=== PATIENT | female | born 1965 | race Caucasian/White ===

== ENCOUNTER 2016-08-25 08:46 | Emergency (ER) | payer OTHER ==
[~2016-08-25] VITALS: Ht 170.2 cm; Wt 70.0 kg
[2016-08-25] MEDS ORDERED: SODIUM CHLORIDE 0.9% 1,000 ML IV ONE (08:57)
[2016-08-25 09:13] LABS: BASOPHILS % 0.9 % (0.0-2.0); EOSINOPHILS % 5.5 % (0.0-5.0); HEMATOCRIT. 40.2 % (36.0-48.0); HEMOGLOBIN. 13.3 g/dL (12.0-16.0); LYMPHOCYTES % 22.3 % (20.0-50.0); MEAN CORPUSCULAR HEMOGLOBIN 27.7 pg (28.0-32.0); MEAN CORPUSCULAR VOLUME 83.9 fL (81.0-99.0); MEAN PLATELET VOLUME 7.6 fl (7.4-10.4); MONOCYTES % 9.4 % (2.0-8.0); NEUTROPHILS % 61.9 % (40.0-76.0); PLATELET 248 x1000/uL (130-400); RED BLOOD CELL COUNT 4.79 mill/uL (4.2-5.4); RED CELL DISTRIBUTION WIDTH 14.7 % (11.6-14.6); WHITE BLOOD COUNT 6.1 x1000/uL (4.5-11.0)
[2016-08-25 09:20] LABS: PROTHROMBIN TIME 10.4 sec
[2016-08-25 09:24] LABS: ALANINE AMINOTRANSFERASE 45 IU/L (13-61); ALBUMIN 3.4 g/dL (3.4-5.0); ANION GAP 13; CALCIUM 8.7 mg/dL (8.5-10.1); CARBON DIOXIDE 26 mEq/L (21-32); CHLORIDE 104 mEq/L (98-107); INDEX HEMOLYSI 1 (1-3); INDEX ICTERIC 1 (1-4); INDEX LIPEMIC 2 (1-3); LIPASE 218 IU/L (73-393); MAGNESIUM 2.1 mg/dL (1.8-2.4); UREA NITROGEN BLOOD 10 mg/dL (7-21); eGFR > 60 mL/min (>60)
[2016-08-25 09:29] LABS: NT PRO B-TYPE NATRIURETIC PEP 135 pg/mL (5-125); TROPONIN I < 0.02 ng/mL (0.00-0.04)
[2016-08-25] MEDS ORDERED: MORPHINE SULFATE 4 MG/ML CPJ (NOT FOR IM USE) IV ONE (09:30)
[2016-08-25] MEDS ORDERED: ONDANSETRON HCL 4MG/2ML VIAL IV ONE (09:30)
[2016-08-25 09:38] LABS: CREATINE KINASE 1163 IU/L (26-192)
[2016-08-25 09:41] LABS: BG BASE EXCESS -0.5 mmol/L (-2.0-2.0); BG CARBOXYHEMOGLOBIN 0.3 % (0.5-1.5); BG DEOXYHEMOGLOBIN 2.5 % (0.0-5.0); BG FRACTION INSPIRED OXYGEN 21; BG HCO3 ACT 23.5 mmol/L (22.0-26.0); BG METHEMOGLOBIN 0.2 % (0.0-1.5); BG OXYGEN SATURATION 97.5 % (92.0-98.5); BG PCO2 36.8 mmHg (35.0-45.0); BG PH 7.424 (7.350-7.450); BG PO2 99.1 mmHg (75.0-100.0); BG SAMPLE SITE LEFT RADIAL; BG TOTAL HEMOGLOBIN 13.8 g/dL (12.0-18.0); BG VENT MODE ROOM AIR
[2016-08-25] MEDS ORDERED: PREDNISONE 20MG TABLET PO ONE (10:30)
[2016-08-25 10:44] LABS: CLARITY URINE CLEAR (CLEAR); COLOR URINE YELLOW (YELLOW); GLUCOSE URINE NEGATIVE (NEGATIVE); KETONES URINE NEGATIVE (NEGATIVE); LEUKOCYTE ESTERASE URINE NEGATIVE (NEGATIVE); NITRITE URINE NEGATIVE (NEGATIVE); OCCULT BLOOD URINE NEGATIVE (NEGATIVE); PROTEIN URINE NEGATIVE (NEGATIVE); SPECIFIC GRAVITY URINE 1.007 (1.005-1.030); UROBILINOGEN URINE 0.2 E.U./dL (0.2-1.0)
[2016-08-25 11:49] VITALS: BP 141/60
== END 2016-08-25 12:35 | disposition short-term general hospital (02) ==
LOC: ER 09:05
DX: R53.1 Weakness (principal); M62.82 Rhabdomyolysis; R42 Dizziness and giddiness; R51 Headache; M32.9 Systemic lupus erythematosus, unspecified; M33.20 Polymyositis, organ involvement unspecified; R11.0 Nausea
CPT/HCPCS: 36415; 36600; 70450; 71010; 80053; 81003; 82375; 82550; 82553; 82805; 83605; 83690; 83735; 83880; 84484; 85025; 85610; 87040; 87086; 93005; 96361; 96374; 96375; 99291; J2270; J2405; J7030; J7512; Z7610

== ENCOUNTER 2018-08-30 16:12 | Emergency (ER) | payer OTHER ==
[~2018-08-30] VITALS: Ht 152.4 cm; Wt 77.0 kg
[2018-08-30] MEDS ORDERED: SODIUM CHLORIDE 0.9% 1,000 ML IV ONE (17:06)
[2018-08-30] MEDS ORDERED: DIAZEPAM 5 MG/ML 2ML CPJ IV ONE (17:15)
[2018-08-30 17:42] LABS: BASOPHILS % 0.8 % (0.0-2.0); EOSINOPHILS % 2.1 % (0.0-5.0); HEMATOCRIT. 40.5 % (36.0-48.0); HEMOGLOBIN. 13.2 g/dL (12.0-16.0); LYMPHOCYTES % 26.3 % (20.0-50.0); MEAN CORPUSCULAR HEMOGLOBIN 27.6 pg (28.0-32.0); MEAN CORPUSCULAR VOLUME 84.7 fL (81.0-99.0); MEAN PLATELET VOLUME 8.4 fl (7.4-10.4); MONOCYTES % 6.5 % (2.0-8.0); NEUTROPHILS % 64.3 % (40.0-76.0); PLATELET 223 x1000/uL (130-400); RED BLOOD CELL COUNT 4.78 mill/uL (4.2-5.4); RED CELL DISTRIBUTION WIDTH 14.8 % (11.6-14.6)
[2018-08-30 17:43] LABS: CHLORIDE 107 mEq/L (98-107)
[2018-08-30] MEDS ORDERED: MECLIZINE 25MG TABLET PO ONE (18:30)
[2018-08-30 20:35] VITALS: BP 149/80
== END 2018-08-30 20:30 | disposition home or self-care (01) ==
LOC: ER 16:12
DX: R42 Dizziness and giddiness (principal); H53.8 Other visual disturbances; R53.1 Weakness; M33.20 Polymyositis, organ involvement unspecified
CPT/HCPCS: 36415; 70450; 80053; 83605; 84484; 85025; 93005; 96361; 96374; 99284; J3360; J7030; J8597